=== PATIENT | female | born 1950 | race Caucasian/White ===

== ENCOUNTER → 2021-05-12 | Day surgery (SDC) | payer MEDICARE, OTHER ==
[~2021-05-12] VITALS: Ht 167.6 cm; Wt 52.2 kg
[~2021-05-12] MED LIST: ACCUTANE PO; CALCIUM 600 +1 EAC3 PO; IBUPROFEN800 M1 PO; PREDNISONE 10MG10 MG PO
== END | disposition home or self-care (01) ==
LOC: FAS 06:48
DX: N95.0 Postmenopausal bleeding (principal); N88.2 Stricture and stenosis of cervix uteri; N81.4 Uterovaginal prolapse, unspecified; K21.9 Gastro-esophageal reflux disease without esophagitis; Z79.899 Other long term (current) drug therapy; Z80.0 Family history of malignant neoplasm of digestive organs; Z80.3 Family history of malignant neoplasm of breast
CPT/HCPCS: J1100; J1885; J2250; J2405; J2704; J3010; J7120